=== PATIENT | male | born 1970 | race Two or more races ===

== ENCOUNTER 2016-08-06 20:14 | Emergency (ER) | payer SELFPAY ==
[~2016-08-06] VITALS: Ht 172.7 cm; Wt 65.8 kg
[2016-08-06 20:15] VITALS: BP 126/73
[2016-08-06] MEDS ORDERED: HYDROCODONE/APAP 5/325MG 1 EACH TABLET PO ONE (20:30)
[2016-08-06] MEDS ORDERED: KETOROLAC TROMETHAMINE INJ 30 MG/ML VIAL IM ONE (20:30)
[2016-08-06] MEDS ORDERED: KETOROLAC TROMETHAMINE INJ 30 MG/ML VIAL ONE (20:36)
[2016-08-06] MEDS ORDERED: HYDROCODONE/APAP 5/325MG 1 EACH TABLET ONE (20:36)
== END 2016-08-06 22:39 | disposition home or self-care (01) ==
LOC: EDSEX 20:16 → ER 20:16
DX: S39.012A Strain of muscle, fascia and tendon of lower back, initial encounter (principal); V43.52XA Car driver injured in collision with other type car in traffic accident, initial encounter; Y93.89 Activity, other specified; Y92.89 Other specified places as the place of occurrence of the external cause; Y99.9 Unspecified external cause status
CPT/HCPCS: 72100; 96372; 99284; A4606; J1885; Z7610